=== PATIENT | female | born 1960 | race African-American/Black ===

== ENCOUNTER 2023-06-27 03:01 | Emergency (ER) | payer OTHER ==
[~2023-06-27] VITALS: Ht 170.2 cm; Wt 75.0 kg
[~2023-06-27 03:01] MED LIST: AMLO5TAB88 PO; CARB-32 MT; CYCL5TAB MT; HYDR-4009 PO; IBUP-2029 PO; LORA10TA7 MT; LORA1TAB PO; METH-773 PO; METO100T16 MT; NITR0.4T SL; NTG; [UNRECOGNIZED DRUG - OTHER]; amlodipine; doxycycline; hctz; lorazapam
[2023-06-27 03:03] VITALS: O2SAT 98
[2023-06-27 04:30] VITALS: BP 160/90; PULSE 99; RESP 18; TEMP 98.3
== END 2023-06-27 04:30 ==
LOC: ER 03:01
DX: R53.1 Weakness (principal); Z86.73 Personal history of transient ischemic attack (TIA), and cerebral infarction without residual deficits; I10 Essential (primary) hypertension; F12.10 Cannabis abuse, uncomplicated; Z79.899 Other long term (current) drug therapy
CPT/HCPCS: 99283